=== PATIENT | female | born 1980 | race Caucasian/White ===

== ENCOUNTER 2018-01-03 20:55 | Observation (INO) | payer MEDICAID ==
[~2018-01-03] VITALS: Ht 165.1 cm; Wt 72.6 kg
[2018-01-03] MEDS ORDERED: TERBUTALINE SULFATE 1 MG/ML VIAL SUBCUT ONE (22:30)
== END 2018-01-03 23:37 | disposition home or self-care (01) ==
LOC: SPU 20:55
PROVIDERS: ADMIT Obstetrics & Gynecology; ATTEND Obstetrics & Gynecology
DX: O62.9 Abnormality of forces of labor, unspecified (principal); Z3A.36 36 weeks gestation of pregnancy
CPT/HCPCS: 81002; 96372; G0378; J3105

== ENCOUNTER 2020-06-08 13:34 | Emergency (ER) | payer MEDICAID ==
[~2020-06-08] VITALS: Ht 165.1 cm; Wt 59.0 kg
[2020-06-08 13:35] VITALS: BP_SYST 129
[2020-06-08] MEDS ORDERED: AMOX-426 PO (14:04)
[2020-06-08] MEDS ORDERED: IBUP-1969 PO (14:04)
== END 2020-06-08 14:12 | disposition home or self-care (01) ==
LOC: SED 13:34
DX: J02.9 Acute pharyngitis, unspecified (principal); R59.1 Generalized enlarged lymph nodes
CPT/HCPCS: 99283

== ENCOUNTER → 2021-07-01 | Emergency (ER) | payer MEDICAID ==
[~2021-07-01] VITALS: Ht 165.1 cm; Wt 59.0 kg
[~2021-07-01] MED LIST: AMOX-426 PO; IBUP-1969 PO; SULF1TAB48 PO
--- NOTE | 2021-07-02 00:10 | NUR ---
Patient to ER bed 2 to gown for evaluation. Side rails up. Report given to .
--- NOTE | 2021-07-02 00:15 | NUR ---
0015 S/B DR SANTIAGO AND U/S HIP DONE AWAITING FOR DISPOSITION
[2021-07-02 00:17] VITALS: BP_SYST 117
[2021-07-02 00:46] VITALS: BP_SYST 120
--- NOTE | 2021-07-02 00:50 | NUR ---
Patient given written and verbal discharge instructions and verbalizes understanding. DALIA SANTIAGO MD discussed with patient the results and treatment provided. Patient in stable condition. ID arm band removed. Rx of BACTRIM DS given. Patient educated on pain management and to follow up with PMD. Pain Scale . Opportunity for questions provided and answered. Medication side effect fact sheet provided.
== END | disposition home or self-care (01) ==
LOC: SED 22:48
DX: L03.115 Cellulitis of right lower limb (principal)
CPT/HCPCS: 99283